=== PATIENT | male | born 1955 | race Caucasian/White ===

== ENCOUNTER → 2018-11-13 | Outpatient (CLI) | payer MEDICARE, OTHER ==
[~2018-11-13] MED LIST: REGADENOSON INJ 0.4 MG/5 ML DISP.SYRIN IV ONE
--- NOTE | 2018-11-15 09:30 | RADIOLOGY REPORT ---
STRESS TEST REPORT PATIENT NAME: SALVADOR RUSS ROOM#: DATE OF SERVICE: 11/13/18 AGE: 63Y ORDER#: [id number] REFERRING MD: BRUNO MARCH M.D. INDICATION: Rest/stress single-isotope Cardiolite SPECT imaging with IV Lexiscan and stress and gated SPECT imaging. PROCEDURE PERFORMED: For assessment of shortness of breath. CLINICAL HISTORY: This 63-year-old male with no known coronary artery disease, but has risk factors of hypertension and hypercholesterolemia. Current symptomatology is shortness of breath. REPORT: The patient received IV Lexiscan 0.4 mg infused over 10 seconds. The resting heart rate was 93 bpm and increased to 110 at end infusion. The resting blood pressure was 112/79 and decreased to 106/70 at end infusion. The patient had no symptoms of chest pain. Resting 12-lead EKG showed sinus rhythm 97 bpm with left axis deviation and poor R wave progression in V1 to V3. At end infusion, no ST changes were seen. Myocardial perfusion imaging was performed at rest 60 minutes following the injection of 9.67 mCi of Cardiolite. Ten seconds after the IV Lexiscan infusion, the patient was injected with 32.1 mCi of Cardiolite and flushed. Gated post stress tomographic imaging was performed 60 minutes after stress. FINDINGS: 1. The overall quality of the study is fair. 2. The left ventricular cavity is noted to be enlarged, more on the stress study than on the rest study. There is definitely therefore evidence of transient ischemic dilatation of the left ventricle. The TID ratio is 1.44 and this is abnormal. 3. The SPECT images showed a small area of mild reversible ischemia in the apical anteroseptal wall. There is mostly fixed perfusion defects in the entire inferior wall. In the apical half of the inferior wall the perfusion defect is of moderate intensity and is fixed. In the basal half of the inferior wall, the perfusion defect is moderate and is fixed. The gated SPECT imaging showed reduced contraction, but normal motion in the entire inferior wall and is reduced in the anteroseptal wall as well. The overall left ventricular systolic function was normal at 57%. IMPRESSION: MYOCARDIAL PERFUSION IMAGING IS ABNORMAL. THERE IS A SMALL AREA OF MILD REVERSIBLE ISCHEMIA IN THE APICAL ANTEROSEPTAL WALL. THERE ARE LARGE AREAS OF FIXED EFFUSION DEFECT IN THE ENTIRE INFERIOR WALL WITH THE APICAL HALF BEING MODERATELY SEVERE IN TERMS OF PERFUSION DEFECT AND THE BASAL HALF BEING SEVERE FIXED PERFUSION DEFECT. THERE IS REDUCED CONTRACTION IN THE ENTIRE INFERIOR WALL AND THERE IS REDUCED CONTRACTION IN THE APICAL ANTERSEPTAL WALL WELL. RECOMMENDATIONS: Due to the phenomenon of transient ischemic dilation of the left ventricle and the large perfusion defects in the inferior wall and a smaller reversible ischemia in the apical anteroseptal wall, would consider left heart catheterization, for multivessel disease. Clinical correlation is strongly recommended since patient did not appear to have chest pain, but has exertional dyspnea with 3/5 coronary artery risk factors. INTERPRETING PHYSICIAN: WILVER BRITTON M.D. /: [id number] TT: [id number] ID: [id number] /: [id number] TD: [id number] JOB: [id number] cc:WILVER BRITTON M.D., IBIKUNLE M.D. > [email or web address]
== END ==
LOC: RAD 06:17
PROVIDERS: ATTEND Internal Medicine
DX: R06.02 Shortness of breath (principal); I10 Essential (primary) hypertension; E78.00 Pure hypercholesterolemia, unspecified
CPT/HCPCS: 93017; 78452; A9500; J2785; Q9969

== ENCOUNTER 2019-02-05 06:19 | Day surgery (SDC) | payer MEDICARE, OTHER ==
[~2019-02-05 06:19] MED LIST changes: +RADIAL COCKTAIL SYRINGE 10 ML IV PRN; -REGADENOSON INJ 0.4 MG/5 ML DISP.SYRIN IV ONE
[2019-02-05 07:06] LABS: HEMATOCRIT 33.5 % (37.9-51.0); HEMOGLOBIN 11.7 g/dL (13.5-17.0); MEAN CORPUSCULAR HEMOGLOBIN 34.4 pg (27.0-33.4); MEAN CORPUSCULAR HGB CONC 34.9 g/dL (32.0-36.0); MEAN CORPUSCULAR VOLUME 99 fl (80-97); PLATELET COUNT 284 10^3/uL (150-450); RED BLOOD COUNT 3.39 10^6/uL (4.35-5.55); WHITE BLOOD COUNT 8.7 10^3/uL (4.0-10.5)
[2019-02-05] MEDS ORDERED: DIPHENHYDRAMINE HCL 25 MG CAPSULE ONE (07:15)
[2019-02-05] MEDS ORDERED: DIAZEPAM 5 MG TABLET ONE (07:16)
[2019-02-05] MEDS ORDERED: ASPIRIN 325 MG TABLET ONE (07:16)
[2019-02-05] MEDS ORDERED: LIDOCAINE 0.5% INJ-PF (5 MG/ML) 50 ML SDV ONE (07:19)
[2019-02-05] MEDS ORDERED: HEPARIN SODIUM,PORCINE/NS/PF 2,000 UNIT/1,000 ML RTUINJ IV ONE (07:20)
[2019-02-05] MEDS ORDERED: LIDOCAINE 1% INJ-PF (10 MG/ML) 30 ML SDV ONE (07:20)
[2019-02-05 07:21] LABS: INTERNATIONAL RATION (INR) 1.12; PROTHROMBIN TIME 14.9 SEC (11.4-15.4)
[2019-02-05] MEDS ORDERED: HEPARIN SOD (PORCINE) 1,000 UNIT/ML 10 ML VIAL ONE (07:48)
[2019-02-05] MEDS ORDERED: FENTANYL CITRATE INJ/PF 100 MCG/2 ML AMPUL ONE (07:48)
[2019-02-05] MEDS ORDERED: MIDAZOLAM 2 MG/2 ML INJ ONE (07:48)
--- NOTE | 2019-02-05 09:14 | Operative Report ---
Operative Report DATE OF SURGERY: 02/05/19 PREOPERATIVE DIAGNOSIS: High risk stress test with transient ischemic dilatation POSTOPERATIVE DIAGNOSIS: Noncritical coronary artery disease OPERATION: Left heart catheterization coronary angiography left ventriculography SURGEON: ORLANDO NAVAS ANESTHESIA: Moderate Sedation COMPLICATIONS: None PROCEDURE: After informed consent was obtained the patient was brought to the cardiac catheterization lab and the right wrist was prepared in usual sterile and draped manner. Hemodynamic access was gained using micropuncture technique and the patient was anticoagulated with heparin. An intra-arterial cocktail of verapamil and lidocaine was administered. Selective coronary angiography was performed with a Bradley catheter. This was exchanged with pigtail catheter and left ventriculography was performed in standard GATICA projection. The patient left the Cardiac Catheterization Lab in stable condition, with intact distal pulses and no chest pain or other complications from the procedure. Conscious sedation was initiated, monitored, and maintained during the procedure with the start time of [841] and a completion time of 857 for a total procedure time of 16 minutes. A total of 1.5 milligrams of Versed and 75 milligrams and fentanyl were used for conscious sedation. HEMODYNAMIC DATA: Aortic pressure to beginning the case is 88/47 left ventricular pressure is 86/8 aortic pressure on pullback is 78/47 there is no gradient across the aortic valve CORONARY ANATOMY: [] ANGIOGRAPHY: [] VENTRICULOGRAPHY: Ventriculography is performed in the GATICA projection and demonstrates [normal left ventricular systolic function with an ejection fraction of 76% regional wall motion is normal there is no evidence of mitral regurgitation the sinuses of Valsalva are mildly dilated and the aortic root is upper limits of normal] . CORONARY ANGIOGRAPHY: [] LEFT MAIN: [Left main is normal] LEFT ANTERIOR DESCENDING: [The LAD is transapical with luminal irregularities no critical focal stenosis are seen there are several small diagonals all of which are without significant obstructive disease] CIRCUMFLEX CORONARY: [The circumflex supplies the lateral wall with a large obtuse marginal this is normal] RIGHT CORONARY ARTERY: [Right coronary artery is dominant supplying the PDA and to posterior lateral branches and has a reverse 3 configuration once again luminal irregularities are seen without critical focal narrowings] IMPRESSION: [ 1. Normal left ventricular systolic function 2. Low left ventricular end-diastolic pressure consistent with mild dehydration 3. Essentially normal epicardial coronaries 4. False positive stress test CC Dr. Chris Najera]
[2019-02-05 12:18] VITALS: BP 121/71
[2019-02-06] MEDS ORDERED: DIPHENHYDRAMINE HCL 25 MG CAPSULE PO PRN (05:00)
[2019-02-06] MEDS ORDERED: DIAZEPAM 5 MG TABLET PO PRN (05:00)
[2019-02-06] MEDS ORDERED: ASPIRIN 325 MG TABLET PO PRN (05:00)
== END 2019-02-05 12:00 | disposition home or self-care (01) ==
LOC: CCL 06:19
PROVIDERS: ATTEND Internal Medicine Cardiovascular Disease
DX: I25.10 Atherosclerotic heart disease of native coronary artery without angina pectoris (principal); R94.39 Abnormal result of other cardiovascular function study; R06.09 Other forms of dyspnea; Z79.01 Long term (current) use of anticoagulants; Z86.39 Personal history of other endocrine, nutritional and metabolic disease; Z83.3 Family history of diabetes mellitus; Z87.891 Personal history of nicotine dependence
CPT/HCPCS: 36415; 82962; 85027; 85610; 93458; J2250; A9270 ×3; J3010; J1644 ×2; J3490 ×4

== ENCOUNTER → 2019-07-09 | Outpatient (CLI) | payer MEDICARE, OTHER ==
--- NOTE | 2019-07-09 13:13 | RADIOLOGY REPORT (SQ) ---
EXAM DESCRIPTION: KNEE RIGHT 2 VIEWS COMPLETED DATE/TIME: 07/09/2019 12:31 pm REASON FOR STUDY: PAIN IN RIGHT KNEE M25.561 PAIN IN RIGHT KNEE COMPARISON: None. NUMBER OF VIEWS: Three views. TECHNIQUE: AP, lateral, and both oblique radiographic images acquired of the right knee. LIMITATIONS: None. FINDINGS: MINERALIZATION: Normal. BONES: No acute fracture or dislocation. No worrisome bone lesions. JOINT: Moderate to moderate severe narrowing medial compartment of the knee and mild to moderate keith rowing at the patellofemoral and lateral compartment. Small marginal osteophytes and patellar pole o steophytes. No effusion. SOFT TISSUES: No soft tissue swelling. No radio-opaque foreign body. OTHER: No other significant finding. IMPRESSION: 1. Tricompartmental osteoarthrosis more so at the medial and patellofemoral compartment s of the knee. 2. No acute osseous findings. TECHNICAL DOCUMENTATION: JOB ID: [id number] [employer]- All Rights Reserved Reading location - IP/workstation name: [email or web address]
== END ==
LOC: OD 12:14
PROVIDERS: ATTEND Internal Medicine
DX: M25.561 Pain in right knee (principal)

== ENCOUNTER → 2019-07-15 | Outpatient (CLI) | payer MEDICARE, OTHER ==
--- NOTE | 2019-07-15 13:54 | RADIOLOGY REPORT (SQ) ---
EXAM DESCRIPTION: CT CHEST WITHOUT COMPLETED DATE/TIME: 07/15/2019 12:26 pm REASON FOR STUDY: SHORTNESS OF BREATH (R06.02) R06.02 SHORTNESS OF BREATH COMPARISON: None. TECHNIQUE: CT scan performed of the chest without intravenous contrast. Images reviewed with lung, soft tissue and bone windows. Reconstructed coronal and sagittal MPR images reviewed. All images st ored on PACS. All CT scanners at this facility use dose modulation, iterative reconstruction, and/or weight based d osing when appropriate to reduce radiation dose to as low as reasonably achievable (ALARA). [facility]: Dose Right [facility]: CareDose [facility]: Dose Right [facility]: Teradose 4D [facility]: [employer] RADIATION DOSE: CT Rad equipment meets quality standard of care and radiation dose reduction techniq ues were employed. CTDIvol: 8.4 mGy. DLP: 318 mGy-cm. mGy. LIMITATIONS: No technical limitations. FINDINGS: LUNGS AND PLEURA: No masses, infiltrates, or pneumothorax. No pleural effusions or pleura l calcifications. HILAR AND MEDIASTINAL STRUCTURES: No identified masses or abnormal nodes. No obvious aneurysm. HEART AND VASCULAR STRUCTURES: No aneurysm. No pericardial effusion. UPPER ABDOMEN: No significant findings. Limited exam. THYROID AND OTHER SOFT TISSUES: No masses. No adenopathy. BONES: No significant finding. HARDWARE: None in the chest. OTHER: No other significant findings. IMPRESSION: NO SIGNIFICANT FINDING ON NON-CONTRASTED CHEST CT. TECHNICAL DOCUMENTATION: JOB ID: [id number] Quality ID # [id number]: Final reports with documentation of one or more dose reduction techniques (e.g., Au tomated exposure control, adjustment of the mA and/or kV according to patient size, use of iterative reconstruction technique) 2010 [employer]- All Rights Reserved Reading location - IP/workstation name: [email or web address]
== END ==
LOC: RAD 12:14
PROVIDERS: ATTEND Internal Medicine
DX: R06.02 Shortness of breath (principal)
CPT/HCPCS: 71250

== ENCOUNTER → 2020-03-13 | Outpatient (CLI) | payer MEDICARE, OTHER ==
--- NOTE | 2020-03-13 17:27 | RADIOLOGY REPORT (SQ) ---
EXAM DESCRIPTION: VENOUS BILATERAL LOWER IMAGES COMPLETED DATE/TIME: 03/13/2020 4:45 pm REASON FOR STUDY: BLE SWELLING R22.43 LOCALIZED SWELLING, MASS AND LUMP, LOWER LIMB, BILATE COMPARISON: None. TECHNIQUE: Dynamic and static sesay scale and color images acquired of both lower extremity venous sy stems. Selected spectral images acquired with additional compression and augmentation maneuvers. Imag es stored on PACS. LIMITATIONS: None. FINDINGS: RIGHT LEG COMMON FEMORAL AND FEMORAL: Normal phasicity, compression and augmentation. No visualized echogenic m aterial on sesay scale. No defects on color images. POPLITEAL: Normal compression and augmentation. No visualized echogenic material on sesay scale. No de fects on color images. CALF VESSELS: Normal compression and augmentation. No visualized echogenic material on sesay scale. No defects on color image. GSV AND SSV: Normal compression. No visualized echogenic material on sesay scale. No defects on color images. ANY DEEP VENOUS INSUFFICIENCY: Not evaluated. ANY EVIDENCE OF POPLITEAL CYST: No. OTHER: No other significant finding. LEFT LEG COMMON FEMORAL AND FEMORAL: Normal phasicity, compression and augmentation. No visualized echogenic m aterial on sesay scale. No defects on color images. POPLITEAL: Normal compression and augmentation. No visualized echogenic material on sesay scale. No de fects on color images. CALF VESSELS: Normal compression and augmentation. No visualized echogenic material on sesay scale. No defects on color images. GSV AND SSV: Normal compression. No visualized echogenic material on sesay scale. No defects on color images. ANY DEEP VENOUS INSUFFICIENCY: Not evaluated. ANY EVIDENCE POPLITEAL CYST: No. OTHER: No other significant finding. IMPRESSION: NO EVIDENCE DVT OR SVT IN EITHER LEG. TECHNICAL DOCUMENTATION: JOB ID: [id number] [employer]- All Rights Reserved Reading location - IP/workstation name: [email or web address]
== END ==
LOC: SP 14:29
PROVIDERS: ATTEND Internal Medicine
DX: R22.43 Localized swelling, mass and lump, lower limb, bilateral (principal)
CPT/HCPCS: 93970

== ENCOUNTER → 2020-06-17 | Outpatient (CLI) | payer MEDICARE, OTHER ==
[2020-06-17 12:08] LABS: ABSOLUTE BASOPHILS # (AUTO) 0.1 10^3/uL (0.0-0.2); ABSOLUTE EOSINOPHILS # (AUTO) 0.1 10^3/uL (0.0-0.6); ABSOLUTE LYMPHOCYTES (AUTO) 3.1 10^3/uL (0.5-4.7); ABSOLUTE MONOCYTES (AUTO) 0.7 10^3/uL (0.1-1.4); BASOPHILS % (AUTO) 0.6 % (0-2); EOSINOPHILS % (AUTO) 1.4 % (0-6); HEMATOCRIT 29.9 % (37.9-51.0); HEMOGLOBIN 10.5 g/dL (13.5-17.0); LYMPHOCYTES % (AUTO) 34.6 % (13-45); MEAN CORPUSCULAR HEMOGLOBIN 35.2 pg (27.0-33.4); MEAN CORPUSCULAR HGB CONC 35.1 g/dL (32.0-36.0); MEAN CORPUSCULAR VOLUME 100 fl (80-97); MONOCYTES % (AUTO) 7.6 % (3-13); PLATELET COUNT 268 10^3/uL (150-450); RED BLOOD COUNT 2.98 10^6/uL (4.35-5.55); RED CELL DISTRIBUTION WIDTH 14.6 % (11.5-14.0); SEGMENTED NEUTROPHILS % (AUTO) 55.8 % (42-78); TOTAL CELLS COUNTED % (AUTO) 100 %
[2020-06-17 12:08] LABS: ARTERIAL BLOOD HCO3 18.6 mmol/L (20-24); ARTERIAL BLOOD O2 SATURATION 96.9 % (94-98); ARTERIAL BLOOD PCO2 29.8 mmHg (35-45); ARTERIAL BLOOD PH 7.41 (7.35-7.45); ARTERIAL BLOOD PO2 87.3 mmHg (80-100); ARTERIAL BLOOD TOTAL CO2 19.6 mmol/L (23-27)
[2020-06-17 12:09] LABS: ARTERIAL BLOOD FIO2 ROOM AIR
[2020-06-17 12:42] LABS: ANION GAP 10 (5-19); BLOOD UREA NITROGEN 28 mg/dL (7-20); CALCIUM 9.6 mg/dL (8.4-10.2); CARBON DIOXIDE 25 mmol/L (22-30); CHLORIDE 105 mmol/L (98-107); GLUCOSE 226 mg/dL (75-110); POTASSIUM 4.5 mmol/L (3.6-5.0)
== END ==
LOC: OD 11:09
PROVIDERS: ATTEND Internal Medicine Pulmonary Disease
DX: J44.9 Chronic obstructive pulmonary disease, unspecified (principal)
CPT/HCPCS: 80048; 82803; 85025